=== PATIENT | male | born 1970 | race Hispanic/Latino ===

== ENCOUNTER 2020-01-27 09:56 | Inpatient (IN) | payer SELFPAY ==
[2020-01-27] MEDS ORDERED: Fentanyl 100 MCG/2 ML VIAL ONE ×5 (10:06→15:51)
--- NOTE | 2020-01-27 10:18 | RAD ---
XR Tib Fib Rt Leg 2 View History: Injury. Slipped and fell Comparison: None. Findings: Displaced spiral type fracture distal tibial metaphysis with one half shaft width lateral d isplacement and external rotation. There is also a fragmentary fracture of the mid fibular diaphysis with lateral displacement one shaft width and external rotation. Impression: Displaced spiral tibial and comminuted fragmentary fibular fractures.
--- NOTE | 2020-01-27 10:43 | RAD ---
XR Tib Fib Rt Leg 2 View History: Injury Comparison: Radiograph same day Findings: Improved rotation of the foot with unchanged cortical displacement. Impression: Improved foot rotation with unchanged cortical displacement.
[2020-01-27] MEDS ORDERED: CEFAZOLIN 2 GM in Premix Bag 1 BAG IVPB SCH (11:15)
--- NOTE | 2020-01-27 11:23 | CON ---
DATE OF CONSULTATION: This is Nick Rivera PA-C dictating a report for Rufino Christy MD. We were asked by the ER to see patient. 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 Per the ER and interpreting system, the patient was taken off the roof by EMS and found to have a right lower extremity tib-fib fracture. He has an abrasion too, but it does not look open from sliding and he states per user interface artist that there was no bone sticking out of the wound. Currently, he has been straightened out and splinted by the ER doctor, Dr. Dhaliwal. He states he is in good health, but he also states he does not see a doctor. He denies hitting his head and no other injuries that he currently complains of. PAST MEDICAL HISTORY: He is healthy. Again, he does not see a doctor, but does not have any health issues. States his family is healthy also. PAST SURGICAL HISTORY: No surgeries, but he does have a scar to the right clavicle area and he states it was an injury when he was younger, 20 some odd years ago. CURRENT MEDICATIONS: None. ALLERGIES: NONE. 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 Occasional EtOH beverage, but no nicotine or illicit drug use. FAMILY HISTORY: Family history for this particular injury is noncontributory. REVIEW OF SYSTEMS: He states he feels good. He has had no ill symptoms recently, which could be the concern during this COVID pandemic. His only complaint is right lower extremity pain. He does not have any bowel, bladder, chest pain, shortness of breath, any other positive review of systems. Per patient and iPad user interface artist. PHYSICAL EXAMINATION: GENERAL: Well-nourished, well-developed, [place]an-speaking male, resting on a gurney in room 7, in no acute distress. Speech is clear per iPad user interface artist and he is oriented x3. HEENT: Face symmetric. Tongue midline. Scalp atraumatic. NECK: Supple. Trachea midline. EXTREMITIES: Upper extremities equal size, shape and symmetry. Normal bulk and tone. Strength and movement equal. No pain with palpation to any of these above areas. Lower extremities, right lower extremity is already splinted, but he does have some good movement of his digits on the right with good sensations. Left lower extremity, no injuries. LUNGS: Respirations 16, no acute distress. PELVIS: No pain with rocking. IMAGING STUDIES: X-ray show a tib-fib fracture. LABORATORY DATA: Labs are pending. ASSESSMENT: Right lower extremity tibia-fibular fracture. PLAN: I spoke with the patient with the iPad user interface artist and explained that due to his injury, he will need to have surgical fixation to fix patient states a good understanding via the user interface artist on the iPad. We went over the risks and benefits of surgery. I answered his questions and concerns and he is amenable to go forth with surgery. Again, he has no allergies to any medications. We will get him set up for an ORIF of the tib-fib probably with a tibial nail since that is a mid lower shaft fracture. He should have enough space to get a nail in there. I have discussed the case with Dr. Christy and we will get him set up. He had a mineral water at 7:30, but has nothing since and had dinner last night. Job ID: [id number]
[2020-01-27 11:35] LABS: #Basophils 0.1 thou/uL (0.0-0.2); #Eosinphils 0.1 thou/uL (0.0-0.7); #Lymphocytes 2.5 thou/uL (1.20-3.40); #Monocytes 0.4 thou/uL (0.11-0.59); %Basophils 1.1 % (0.0-1.0); %Eosinophils 1.3 % (0.0-10.0); %Lymphocytes 35.6 % (21.0-51.0); %Monocytes 5.7 % (0.0-10.0); %Neutrophils 56.3 % (42.0-75.0); Hemoglobin 14.6 g/dL (14.0-18.0); Mean Corpuscular HGB CONC 33.6 g/dL (32.0-36.0); Mean Corpuscular Hemoglobin 32.8 pg (27.0-31.0); Mean Corpuscular Volume 97.8 fL (78.0-98.0); Mean Platelet Volume 8.2 fL (7.4-10.4); Platelet Count 245 thou/uL (130-400); RBC Distribution Width 11.7 % (11.5-14.5); Red Blood Cell (RBC) Count 4.45 mill/uL (4.70-6.10)
[2020-01-27 12:07] LABS: ALT (SGPT) 20 U/L (8-55); AST (SGOT) 21 U/L (5-34); Alkaline Phosphatase 83 U/L (40-110); Anion Gap 11 mmol/L (10-20); BUN (Urea Nitrogen) 16 mg/dL (8.9-20.6); Bilirubin, Total 0.4 mg/dL (0.2-1.2); Calc. Creatinine Clearance 0 mL/min (70-130); Calcium 8.3 mg/dL (7.8-10.44); Carbon Dioxide 22 mmol/L (22-29); Chloride 108 mmol/L (98-107); Estimated GFR-MDRD Greater than 90; Globulin 2.7 g/dL (2.4-3.5); Glucose 149 mg/dL (70-105); Protein, Total 6.7 g/dL (6.0-8.3); Sodium 137 mmol/L (136-145)
[2020-01-27] MEDS ORDERED: Ketorolac Tromethamine 30 MG/ML VIAL ONE ×2 (12:19→15:51)
[2020-01-27] MEDS ORDERED: Ondansetron PF 4 MG/2 ML Vial ONE (12:19)
[2020-01-27] MEDS ORDERED: PROPOFOL 200 MG/20 ML VIAL ONE (12:19)
[2020-01-27] MEDS ORDERED: Lidocaine 1% PF 5 ML VIAL ONE (12:19)
[2020-01-27] MEDS ORDERED: Dexamethasone 20 MG/5 ML VIAL ONE (12:19)
[2020-01-27] MEDS ORDERED: HYDROmorphone 2 MG/ML VIAL SLOW IVP PRN (15:38)
[2020-01-27] MEDS ORDERED: Ondansetron HCl/PF 4 MG/2 ML Vial IVP PRN (15:38)
[2020-01-27] MEDS ORDERED: Promethazine HCl 25 MG/ML VIAL SLOW IVP PRN (15:38)
[2020-01-27] MEDS ORDERED: Promethazine HCl 25 MG/ML VIAL IM PRN ×2 (15:38→18:24)
[2020-01-27] MEDS ORDERED: Morphine 2 MG/ML VIAL SLOW IVP PRN (17:10)
[2020-01-27] MEDS ORDERED: traMADol HCl 50 MG TAB PO PRN ×2 (17:10)
[2020-01-27] MEDS ORDERED: Ondansetron PF 4 MG/2 ML Vial IV PRN (17:10)
[2020-01-27] MEDS ORDERED: Communication Order-Pharmacy FS SCH (17:10)
[2020-01-27 18:10] VITALS: BMI 27.7
[2020-01-27] MEDS ORDERED: hydrALAZINE 20 MG/ML VIAL SLOW IVP PRN (18:24)
[2020-01-27] MEDS ORDERED: Dextrose 5% in Water 1,000 ML IV PRN (18:24)
[2020-01-27] MEDS ORDERED: Dextrose 50% Abboject 50 ML SYRINGE SLOW IVP PRN (18:24)
[2020-01-27] MEDS: Ketorolac Tromethamine 30 MG/ML VIAL IVP SCH ×2 (18:25→23:38)
[2020-01-27] MEDS ORDERED: Cyclobenzaprine 10 MG TAB PO PRN (18:28)
[2020-01-27] MEDS ORDERED: Sodium Chloride 0.9% 1,000 ML IV SCH (18:30)
[2020-01-27 18:56] LABS: Phosphorus 2.3 mg/dL (2.3-4.7)
--- NOTE | 2020-01-27 19:21 | HP ---
CONSULTATIONS: Orthopedic Surgery, Dr. Christy. CHIEF COMPLAINT: Slipped while on a roof, level 2 trauma activation, right tibia-fibula fracture. HISTORY OF PRESENT ILLNESS: This is a 49-year-old gentleman with no past medical history, reports being at work working on a roof when he slipped injuring his right lower extremity. The patient did not fall off the roof. The patient denies having any chest pain, shortness of breath, or dizziness before slipping and falling. The patient denies hitting his head or any other injuries. The patient was taken to the emergency room and evaluated. The patient was found to have a closed tibia-fibula fracture of the right lower extremity. The wound was splinted and the patient was taken for surgery for repair with Dr. Christy. After surgery, Orthopedic Surgery notified Trauma for the need of admission. The patient was seen postop on the surgical floor, awake, alert, in no distress. The patient reports very minimal pain at this time. The patient is tolerating ice chips currently. The patient was given fentanyl in the emergency room for pain. No other medications or IV fluids were administered. REVIEW OF SYSTEMS: A 10-point review of systems is negative unless otherwise indicated in the above HPI. PAST MEDICAL HISTORY: The patient denies. PAST SURGICAL HISTORY: The patient denies. ALLERGIES: DENIES. CURRENT MEDICATIONS: Denies. SOCIAL HISTORY: Denies tobacco or cigarette smoking. Denies illicit drug use. Reports occasional beer a couple times a week. Denies heavy drinking or drinking daily. 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 PHYSICAL EXAMINATION: VITAL SIGNS: Temperature 97.4, pulse 89, respirations 16, SpO2 of 98% on room air, blood pressure 162/89. GENERAL: Well-appearing middle-aged male, Icelandic-speaking, awake, alert, in no distress. HEENT: Head is atraumatic and normocephalic. Pupils are equal. Midface is stable. Oropharynx is clear. NECK: No cervical spine tenderness. Normal range of motion of neck. Trachea is midline. RESPIRATORY: Equal chest rise and fall. Bilateral breath sounds clear. No wheezing, rales, or rhonchi. No obvious chest deformity or injuries. CARDIOVASCULAR: Regular rate and regular rhythm. No murmurs. ABDOMEN: Soft, nontender, nondistended. EXTREMITIES: Moves all extremities. No focal deficits. Distal pulses intact in all extremities. Right lower extremity in a splint. Cap refill less than 2 seconds. Swelling noted to the right foot. NEUROLOGIC: No focal deficit. LABORATORY DATA: WBC 7.0, RBC 4.45, hemoglobin 14.6, hematocrit 43.5, MCH 32.8, platelets 245. Sodium 137, potassium 4.0, chloride 108, BUN 16, creatinine 0.84, estimated GFR greater than 90, glucose 149, calcium 8.3, total bilirubin 0.4, AST 21, ALT 20, alkaline phosphatase 83, serum total protein 6.7, albumin 4.0. DIAGNOSTIC DATA: Right tib-fib x-ray, displaced spiral tibial and comminuted fragmentary fibular fractures. Repeat tib-fib x-ray post reduction: Impression, improved foot rotation with unchanged cortical displacement. IMPRESSION: 1. Status post slip and fall while on a roof. 2. Right lower extremity tibia-fibula fracture, postop repair. 3. Acute traumatic pain. PLAN: Regular diet as tolerated. One bag of IV fluids normal saline at 120 an hour as the patient was outside working on a roof and has not had any IV fluids. Repeat labs in the morning. The patient's hemoglobin is stable. We will start the patient on VTE chemical prophylaxis. We will have PT and OT work with the patient postop. If the patient is able to work with Physical Therapy safely and pain is controlled, most likely he can be discharged tomorrow if okay with Orthopedic Surgery. Plan was discussed with the attending. Job ID: [id number]
[2020-01-27] MEDS: Aspirin 81 mg Enteric Coated Tablet PO SCH (20:03)
--- NOTE | 2020-01-27 23:07 | RAD ---
RIGHT TIBIA AND FIBULA: 6 fluoroscopic views obtained from OR. INDICATION: Intraoperative imaging during open reduction and internal fixation. FINDINGS/IMPRESSION: These films demonstrate placement of an intramedullary corin in the tibia. POS: AGW
--- NOTE | 2020-01-28 00:23 | OP ---
DATE OF PROCEDURE: 01/27/2020 PREOPERATIVE DIAGNOSIS: Closed right tib-fib shaft fracture. POSTOPERATIVE DIAGNOSIS: Closed right tib-fib shaft fracture. SURGICAL PROCEDURE: Intramedullary nail stabilization of right tibia. ANESTHESIA: General. TRANSCRIPTION SPECIALIST: Nick Rivera PA-C. ESTIMATED BLOOD LOSS: 100 mL. IMPLANT: Synthes tibial ex nail 10 x 315 mm with 3 Crosslock screws and a 10 mm cap. COMPLICATIONS: None. DRAINS: None. SPECIMEN: None. OUTCOME: Satisfactory. INDICATIONS FOR PROCEDURE: Patient is a 49-year-old gentleman, who slid down a roof sustaining a closed midshaft right tib-fib fracture. After discussion with the patient, including risks and benefits, we have decided to proceed with intramedullary nail stabilization of this fracture. Informed consent has been obtained. I believe all questions have been answered. DESCRIPTION OF PROCEDURE: Patient was brought to the operating room and a time-out performed followed by induction of general anesthesia. Next, patient was positioned supine on the fracture table with the injured extremity held over a bolster and then a sterile prep and drape was performed of this right lower extremity. Next, a midline anterior knee incision was made after skin was sharply incised. Dissection was carried down bluntly to the underlying peritenon. Peritenon was also incised in line with skin incision. The patellar tendon was reflected laterally in a medial parapatellar tendon approach to the proximal tibia was chosen. A threaded guidewire was passed at the appropriate starting point and then reamer passed over this guidewire. Next, a ball-tipped guidewire was passed down the shaft of the tibia across the fracture in the distal tibial metaphysis. Reaming was then started at 8.5 mm and continued up to 11 mm with good cortical chatter achieved. Next, a 10 x 315 mm nail was passed over the ball-tipped guidewire, driven down into the distal tibial metaphysis. Once fully seated, two small stab wounds were made medially at the distal leg and interlocking screws were placed in freehand technique. Once the Crosslock screws were placed, final AP and lateral C-arm images were taken of both the ankle and fracture site. A single Crosslock screw was then applied through the jig proximally and a third small stab wound medially. This was then followed by removal of the jig and placement of a 10 mm cap screw. Final AP and lateral C-arm images were then obtained. The small stab wounds were closed with alessandra. Midline anterior knee wound was closed in layers with 0 Vicryl deep followed by 2-0 Vicryl, alessandra for the skin. Xeroform gauze, Webril, and fiberglass splint were applied to the ankle. Patient was then transferred to recovery room in stable condition. There were no complications. He tolerated the procedure well. Job ID: [id number]
--- NOTE | 2020-01-28 01:23 | PRG ---
DATE OF SERVICE: 01/28/2020 SUBJECTIVE: The patient was seen this evening during rounds. He is postoperative day 0 after fixation of the right tib-fib fracture. At the time of my evaluation, the patient reports pain is well controlled. Tolerating a diet, voiding postoperatively without issues. OBJECTIVE: VITAL SIGNS: Temperature 98.3, pulse 86, respirations 18, oxygen saturation 97% on room air, blood pressure 141/80. GENERAL: Well-appearing middle-aged male, sitting up in bed with no signs of acute distress. PULMONARY: Equal chest rise and fall. No signs of acute respiratory distress. EXTREMITIES: 2+ pulses in all extremities. Gross motor and sensation intact. Right lower extremity with postoperative dressing is clean, dry, and intact with no signs of significant oozing. NEUROLOGIC: GCS is 15. ASSESSMENT: 1. Status post mechanical fall from standing. 2. Right tib-fib fracture, status post repair. PLAN: Continue current regular diet. Discontinue IV fluids. We will re-evaluate pain management in the morning. The patient will work with PT/OT and likely be discharged home tomorrow. Job ID: [id number]
[2020-01-28] MEDS: Ketorolac Tromethamine 30 MG/ML VIAL IVP SCH ×2 (05:30→11:40)
[2020-01-28 06:03] LABS: #Lymphocytes 1.7 thou/uL (1.20-3.40); #Monocytes 0.7 thou/uL (0.11-0.59); #Neutrophils 6.4 thou/uL (1.40-6.50); %Basophils 0.1 % (0.0-1.0); %Eosinophils 0.1 % (0.0-10.0); %Lymphocytes 19.8 % (21.0-51.0); %Monocytes 7.4 % (0.0-10.0); %Neutrophils 72.6 % (42.0-75.0); Hemoglobin 12.7 g/dL (14.0-18.0); Mean Corpuscular HGB CONC 33.7 g/dL (32.0-36.0); Mean Corpuscular Hemoglobin 32.7 pg (27.0-31.0); Mean Corpuscular Volume 97.1 fL (78.0-98.0); Mean Platelet Volume 8.2 fL (7.4-10.4); Platelet Count 221 thou/uL (130-400); RBC Distribution Width 11.7 % (11.5-14.5); Red Blood Cell (RBC) Count 3.88 mill/uL (4.70-6.10); White Blood Cell (WBC) Count 8.8 thou/uL (4.8-10.8)
[2020-01-28 06:22] LABS: Anion Gap 12 mmol/L (10-20); BUN (Urea Nitrogen) 11 mg/dL (8.9-20.6); Calc. Creatinine Clearance 133 mL/min (70-130); Calcium 8.3 mg/dL (7.8-10.44); Carbon Dioxide 24 mmol/L (22-29); Chloride 104 mmol/L (98-107); Estimated GFR-MDRD Greater than 90; Glucose 115 mg/dL (70-105); Potassium 4.5 mmol/L (3.5-5.1); Sodium 135 mmol/L (136-145)
[2020-01-28 06:25] LABS: Phosphorus 3.5 mg/dL (2.3-4.7)
[2020-01-28] MEDS: Aspirin 81 mg Enteric Coated Tablet PO SCH (09:31)
[2020-01-28] MEDS ORDERED: Ibuprofen 600 MG TAB PO PRN (12:00)
[2020-01-28] MEDS ORDERED: Acetaminophen 500 MG TAB PO PRN (12:00)
[2020-01-28 16:02] VITALS: BP 127/70; TEMP 98.5
--- NOTE | 2020-01-30 17:22 | DIS ---
DATE OF ADMISSION: 01/27/2020 DATE OF DISCHARGE: 01/28/2020 CONSULTS: Orthopedic Surgery, Dr. Christy. PROCEDURE: On 01/27/2020, intramedullary nail stabilization of the right tibia. PRIMARY DIAGNOSES: 1. Status post slip and fall, closed right tibia-fibular shaft fracture. 2. Acute traumatic pain. DISCHARGE MEDICATIONS: 1. Acetaminophen 1000 mg p.o. q.6 hours. 2. Aspirin 81 mg p.o. b.i.d. for VTE prophylaxis. 3. Ibuprofen 600 mg p.o. q.8 hours p.r.n. pain. 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 The patient did not have a fall from any height. The patient denies having any chest pain, shortness of breath, or dizziness before slipping. The patient denied hitting his head or having any other injuries. The patient was evaluated in the emergency room and found to have a closed tibia-fibular fracture to his right lower extremity. The patient was splinted in the emergency room and taken to the OR for repair. The patient denied any tramadol or any narcotic type medications for pain during his hospital stay. The patient's pain was controlled with Tylenol and ibuprofen. The patient worked with Physical Therapy postop and was able to ambulate using crutches without any difficulties. The patient was tolerating a regular diet. On the day of discharge, the patient's vital signs were stable, and his exam was unremarkable including cardiopulmonary and GI exam. The patient's laboratory data was also unremarkable. The patient was deemed stable for discharge home. DISPOSITION: Stable. DISCHARGE INSTRUCTIONS: 1. Location: Home. 2. Activity: Orthopedic limitations, nonweightbearing, right lower extremity. The patient is to use crutches or walker. 3. Follow up with Dr. Christy in 10 to 14 days. The patient was examined by Dr. Adames on the day of discharge. Job ID: [id number]
== END 2020-01-28 15:20 | disposition home or self-care (01) | DRG 494 ==
LOC: ERS 09:56 → SJJU 15:26
PROVIDERS: ADMIT Orthopaedic Surgery; ATTEND Orthopaedic Surgery
PROC: 0QSG06Z Reposition Right Tibia with Intramedullary Internal Fixation Device, Open Approach (ICD-10-PCS; principal; 2020-01-27)
DX: S82.201A Unspecified fracture of shaft of right tibia, initial encounter for closed fracture (principal); S82.401A Unspecified fracture of shaft of right fibula, initial encounter for closed fracture; W13.2XXA Fall from, out of or through roof, initial encounter
CPT/HCPCS: 27752; 36415; 76000; 80048; 80053; 83735; 84100; 85025; 96374; C1713; G0390; J0690; J1100; J1885; J2405; J2704; J3010